=== PATIENT | male | born 1965 | race Hispanic/Latino ===

== ENCOUNTER → 2021-06-22 | Outpatient (CLI) | payer OTHER ==
[~2021-06-22] MED LIST: AEC81 PO; ISOS30TA92 PO; LISI20TA24 PO; METF-444 PO; REGADENOSON 0.4 MG/5 ML PF SYG IVP SCH; SIMV-43 PO
== END | disposition home or self-care (01) ==
LOC: SHCH 08:35
PROVIDERS: ATTEND Internal Medicine
DX: I44.7 Left bundle-branch block, unspecified (principal); R06.02 Shortness of breath; R94.31 Abnormal electrocardiogram [ECG] [EKG]
CPT/HCPCS: 78452; 93017; 96374; A9500 ×2; J2785

== ENCOUNTER 2021-07-19 05:55 | Day surgery (SDC) | payer OTHER ==
[2021-07-15 14:09] LABS: BASOPHILS % (AUTO) 0.6 % (0.0-5.0); EOSINOPHILS % (AUTO) 5.7 % (0.0-8.0); HEMATOCRIT 41.8 % (42-54); LYMPHOCYTES % (AUTO) 32.2 % (21.0-51.0); MEAN CORPUSCULAR HEMOGLOBIN 29.1 pg (27.0-33.0); MEAN CORPUSCULAR VOLUME 85.7 fL (79-99); MONOCYTES % (AUTO) 9.4 % (3.0-13.0); PLATELET COUNT (AUTO) 257 K/uL (130-400); RED BLOOD CELL COUNT(AUTO) 4.88 MIL/uL (4.50-6.20); RED CELL DISTRIBUTION WIDTH 12.7 % (11.0-15.5); WHITE BLOOD COUNT (AUTO) 6.8 K/uL (4.8-10.8)
[2021-07-15 14:13] LABS: APPEARANCE,URINE Clear (CLEAR); BILIRUBIN,URINE Negative (NEGATIVE); COLOR,URINE Yellow (YELLOW); GLUCOSE, URINE (UA) Negative (NEGATIVE); KETONES,URINE Negative (NEGATIVE); LEUKOCYTE ESTERASE ,URINE Negative (NEGATIVE); NITRATE,URINE Negative (NEGATIVE); OCCULT BLOOD,URINE Negative (NEGATIVE); PH,URINE 5.5 (5.0-8.0); PROTEIN,URINE Negative (NEGATIVE)
[2021-07-15 14:20] LABS: CREATININE 0.9 mg/dL (0.5-1.5); POTASSIUM 3.9 mmol/L (3.5-5.1)
[2021-07-15 14:23] LABS: INR 1.01 (0.85-1.15)
[2021-07-16 10:02] VITALS: BP 156/84
[~2021-07-19] VITALS: Ht 160 cm; Wt 82.6 kg
[2021-07-19] VITALS (10 sets, daily range): BP systolic 111–149; BP diastolic 70–84
[~2021-07-19 05:55] MED LIST changes: -REGADENOSON 0.4 MG/5 ML PF SYG IVP SCH
[2021-07-19] MEDS: 0.9%NACL 1000ML 1,000 ML IV SCH ×2 (06:57→11:47)
[2021-07-19] MEDS ORDERED: NICARDIPINE 25MG INJ IV ONE (07:16)
[2021-07-19] MEDS ORDERED: LIDOCAINE HCL 400MG/20ML VIAL ONE (07:17)
[2021-07-19] MEDS ORDERED: IOHEXOL-350 50ML VIAL IV ONE (07:17)
[2021-07-19] MEDS ORDERED: HEPARIN 10,000 UNIT/10ML (1,000 UNIT/ML) VIAL ONE (07:17)
[2021-07-19] MEDS ORDERED: NITROGLYCERIN 50MG VIAL IV ONE (07:17)
[2021-07-19] MEDS ORDERED: IOHEXOL 350 MG/ML 100ML INFUS..BTL IV ONE (07:17)
[2021-07-19] MEDS ORDERED: MIDAZOLAM HCL 1 MG/ML 2ML VIAL ONE (07:53)
[2021-07-19] MEDS ORDERED: FENTANYL CITRATE PF 50 MCG/1 ML 2ML VIAL ONE (07:54)
[2021-07-19] MEDS ORDERED: IOHEXOL-350 75 ML VIAL IV ONE (08:04)
[2021-07-19] MEDS ORDERED: 0.9%NACL 1000ML 1,000 ML IV SCH (08:30)
== END 2021-07-19 12:35 | disposition home or self-care (01) ==
LOC: DAH 05:55
PROVIDERS: ATTEND Internal Medicine
DX: I25.10 Atherosclerotic heart disease of native coronary artery without angina pectoris (principal); I42.8 Other cardiomyopathies; I11.0 Hypertensive heart disease with heart failure; I50.22 Chronic systolic (congestive) heart failure; E11.9 Type 2 diabetes mellitus without complications; E78.5 Hyperlipidemia, unspecified; J84.89 Other specified interstitial pulmonary diseases; H47.019 Ischemic optic neuropathy, unspecified eye; Z79.01 Long term (current) use of anticoagulants; Z79.82 Long term (current) use of aspirin; Z79.84 Long term (current) use of oral hypoglycemic drugs; Z79.899 Other long term (current) drug therapy; Z98.890 Other specified postprocedural states
CPT/HCPCS: 36415; 71045; 80048; 81003; 82948; 85025; 85610; 85730; 93005; 93458; A4215; A4216; A4221; A4222; A4223 ×3; A4606; A4663; C1769; C1894; J1644 ×2; J2250; J3010; J3490 ×3; J7030; Q9965; Q9967; 99156; 99157

== ENCOUNTER → 2023-02-13 | Outpatient (CLI) | payer OTHER ==
[~2023-02-13] MED LIST changes: -ISOS30TA92 PO
[2023-02-13 12:18] LABS: CREATININE 1.3 mg/dL (0.5-1.5); POTASSIUM 4.7 mmol/L (3.5-5.1)
== END | disposition home or self-care (01) ==
LOC: LAB 08:40
PROVIDERS: ATTEND Internal Medicine Cardiovascular Disease
DX: I10 Essential (primary) hypertension (principal)
CPT/HCPCS: 36415; 80048

== ENCOUNTER → 2023-02-24 | Outpatient (CLI) | payer OTHER ==
[2023-02-24 12:34] LABS: CREATININE 1.5 mg/dL (0.5-1.5); POTASSIUM 4.5 mmol/L (3.5-5.1)
== END | disposition home or self-care (01) ==
LOC: LAB 10:49
PROVIDERS: ATTEND Internal Medicine Cardiovascular Disease
DX: I10 Essential (primary) hypertension (principal)
CPT/HCPCS: 36415; 80048